=== PATIENT | female | born 1975 | race Caucasian/White ===

== ENCOUNTER 2020-07-25 12:10 | Outpatient (REF) | payer OTHER, SELFPAY | END 2020-07-25 12:11 | disposition home or self-care (01) | LOC: HO.LAB 12:10 | PROVIDERS: Visit Provider Internal Medicine | DX: Z20.828 Contact with and (suspected) exposure to other viral communicable diseases (principal) | CPT/HCPCS: 36415; C9803; U0003 ==

== ENCOUNTER 2022-03-20 22:32 | Emergency (ER) | payer OTHER, SELFPAY ==
--- NOTE | ~2022-03-20 | XR_ITS ---
EXAMINATION: XR CHEST CLINICAL INFORMATION: Cough COMPARISON: None TECHNIQUE: Frontal view of the chest was obtained. FINDINGS: The heart size is at upper limits of normal. No infiltrates, effusions or lung masses are seen. Marked biconvex thoracolumbar scoliosis is present. XR/XR chest 1V IMPRESSION: No acute intrathoracic disease.
[2022-03-20 22:36] VITALS: BP 136/83; PULSE 83; RESP 18; TEMP 37.2; O2SAT 97; BMI 28.9
[2022-03-20 23:03] LABS: COVID-19 Test Negative (Negative)
[2022-03-20 23:12] VITALS: PULSE 90; O2SAT 98
--- NOTE | 2022-03-20 23:37 | ED_ITS ---
HPI - SOB/Dyspnea General Chief Complaint: Dyspnea Stated Complaint: Asthma Time Seen by Provider: 03/20/22 23:37 Source: patient Mode of arrival: ambulatory History of Present Illness HPI Narrative: Patient with History of chronic asthma been feeling increased short of breath for last few days seen by PCP today wanted prescription but patient could not wait at the pharmacy for the prescription to be ready, comes in for increased shortness of breath dry cough with post-tussive vomiting no fever no chills no chest pain Related Data Previous Rx's Medication Instructions Recorded albuterol sulfate 2.5 mg/3 mL 2.5 mg (3 mL) inhalation Q4-6H PRN 03/21/22 (0.083 %) solution for nebulization bronchospasm #180 mL benzonatate 200 mg capsule 200 mg PO TID PRN cough #30 caps 03/21/22 nebulizers #1 ea 03/21/22 Allergies Allergy/AdvReac Type Severity Reaction Status Date / Time oxycodone Allergy Itching Verified 03/20/22 22:36 phenytoin [From Dilantin] Allergy Swelling Verified 03/20/22 22:36 Review of Systems Review of Systems: Yes all other systems are reviewed and are negative [facility] Social History Social History Advance Directives: No Advance Directives Information Provided: No Physical Exam Vital Signs: Vital Signs: Last Vital Signs Temp 98.9 F 03/20/22 22:36 Pulse 96 03/21/22 00:00 Resp 18 03/20/22 22:36 BP 122/64 03/21/22 00:00 Pulse Ox 96 03/21/22 00:00 O2 Del Method 03/21/22 00:00 BMI result Body Mass Index 28.9 Appearance: Alert. Oriented X3. No acute distress. ENT: Pharynx normal. Oral Mucosa moist Neck: Normal inspection. Neck supple. CVS: Normal heart rate and rhythm. Pulses normal. Respiratory: No respiratory distress. Equal air entry bilateral, bilateral wheeze++ Abdomen: Soft and nontender. Bowel sounds are present, no mass palpable, no CVA tenderness Skin: Skin warm and dry. Normal skin color. Normal skin turgor. Extremities: No lower extremity edema. No calf tenderness Neuro: Oriented X 3. MDM - SOB/Dyspnea MDM Narrative Medical decision making narrative: Patient feeling much better after nebulizer treatment prednisone will discharge patient home nebulizer was prescribed Lab Data Attestation: I reviewed the patient's lab results. Labs: Lab Results 03/20/22 Range/Units 22:42 COVID-19 ([facility]ALIN) Negative (Negative) COVID-19 Clin Com See Note Discharge Plan Discharge Clinical Impression: Asthma with exacerbation Patient Disposition: Home, Self-Care Instructions: Asthma (ED), Bronchospasm (ED) Additional Instructions: Continues inhaler/nebulizer treatment Prednisone as prescribed Cough drops as prescribed Follow with PCP Prescriptions: New albuterol sulfate 2.5 mg /3 mL (0.083 %) solution for nebulization 2.5 mg inhalation Q4-6H PRN (Reason: bronchospasm) Qty: 180 0RF (DME) nebulizers Misc See Rx Instructions .Route Qty: 1 0RF Rx Instructions: As directed benzonatate 200 mg capsule 200 mg PO TID PRN (Reason: cough) Qty: 30 0RF
[2022-03-20] MEDS: Albuterol Sulfate (0.083%) 2.5 MG/3 ML VIAL.NEB INHALE (23:55)
[2022-03-20] MEDS: Albuterol/Iprat 2.5/0.5MG 3 ML AMPUL.NEB INHALE (23:55)
[2022-03-20] MEDS: predniSONE 20 MG TABLET 40 MG PO (23:58)
[2022-03-21] VITALS: BP 122/64; PULSE 96; O2SAT 96
[2022-03-21] MEDS: guaiFEN/Codeine SF 200/20/10ML 10 ML LIQUID PO (00:44)
== END 2022-03-21 00:51 | disposition home or self-care (01) ==
PROVIDERS: Emergency Provider Internal Medicine
DX: J45.901 Unspecified asthma with (acute) exacerbation (principal); Z20.822 Contact with and (suspected) exposure to COVID-19
CPT/HCPCS: 71045; 87635; 94640; 99284

== ENCOUNTER 2022-06-21 19:36 | Emergency (ER) | payer OTHER, SELFPAY ==
--- NOTE | 2022-06-21 | ECG_ITS ---
Test Reason : ASTHMA Blood Pressure : / mmHG Vent. Rate : 077 BPM Atrial Rate : 077 BPM P-R Int : 156 ms QRS Dur : 130 ms QT Int : 408 ms P-R-T Axes : 045 -34 023 degrees QTc Int : 461 ms Sinus rhythm with marked sinus arrhythmia Left axis deviation Right bundle branch block Abnormal ECG No previous ECGs available Referred By: Generic ED Physician Electronically Signed By:Byron Gregorio
--- NOTE | ~2022-06-21 | XR_ITS ---
EXAMINATION: XR CHEST CLINICAL INFORMATION: Shortness of breath COMPARISON: 03/20/2022 TECHNIQUE: Frontal view of the chest was obtained. FINDINGS: Lung volumes are symmetric. No focal consolidation is seen. No evidence of pneumothorax, pleural effusion, or pulmonary edema. Prominent cardiac silhouette is similar to prior. Redemonstrated scoliosis. XR/XR chest 1V IMPRESSION: No acute cardiopulmonary findings.
[2022-06-21 21:39] VITALS: BP 126/71; PULSE 104; RESP 20; TEMP 36.6; O2SAT 96; BMI 31.3
[2022-06-21 23:17] VITALS: BP 121/69; PULSE 72; RESP 20; TEMP 36.6; O2SAT 95
--- NOTE | 2022-06-21 23:30 | ED_ITS ---
HPI - Asthma General Chief Complaint: Asthma Stated Complaint: asthma Time Seen by Provider: 06/21/22 23:21 Source: patient Mode of arrival: ambulatory Limitations: no limitations History of Present Illness HPI Narrative: Patient history of asthma got worse after COVIDx2 comes here for increased shortness of breath for last 2 3 days patient also have some running nose for last 4 days no fever , feels lung tight. Patient tried her inhaler without much response no leg swelling or calf tenderness patient was seen for similar complaints in 03/12 Related Data Previous Rx's Medication Instructions Recorded albuterol sulfate 2.5 mg/3 mL 2.5 mg (3 mL) inhalation Q4-6H PRN 03/21/22 (0.083 %) solution for nebulization bronchospasm #180 mL benzonatate 200 mg capsule 200 mg PO TID PRN cough #30 caps 03/21/22 nebulizers #1 ea 03/21/22 nebulizers #1 ea 03/23/22 codeine 10 mg-guaifenesin 100 mg/5 10 ml PO Q6H PRN cough #237 mL 06/22/22 mL oral liquid prednisone 20 mg tablet 40 mg PO DAILY #10 tabs 06/22/22 Allergies Allergy/AdvReac Type Severity Reaction Status Date / Time oxycodone Allergy Itching Verified 06/21/22 21:41 phenytoin [From Dilantin] Allergy Swelling Verified 06/21/22 21:41 Review of Systems Review of Systems: Yes all other systems are reviewed and are negative [facility] Social History Social History Advance Directives: No Advance Directives Information Provided: Yes Physical Exam Vital Signs: Vital Signs: Last Vital Signs Temp 97.9 F 06/21/22 23:17 Pulse 80 06/21/22 23:43 Resp 16 06/21/22 23:43 BP 121/69 06/21/22 23:17 Pulse Ox 95 06/21/22 23:17 O2 Del Method 06/21/22 23:17 BMI result Body Mass Index 31.3 Appearance: Alert. Oriented X3. No acute distress. ENT: Pharynx normal. Oral Mucosa moist Neck: Normal inspection. Neck supple. CVS: Normal heart rate and rhythm. Pulses normal. Respiratory: No respiratory distress. Equal air entry bilateral, prolonged expiration bilaterally occasional wheezing Abdomen: Soft and nontender. Bowel sounds are present, no mass palpable, no CVA tenderness Skin: Skin warm and dry. Normal skin color. Normal skin turgor. Extremities: No lower extremity edema. No calf tenderness Neuro: Oriented X 3. No motor deficit. Medications Administered Discontinued Medications Generic Name Dose Route Start Last Admin Trade Name Freq PRN Reason Stop Dose Admin Albuterol Sulfate 2.5 mg/ 0 mg 06/21/22 23:31 06/21/22 23:39 Albuterol/Ipratropium 3 ml INHALE 06/21/22 23:32 1 each ONCE ONE Administration Dexamethasone 10 mg 06/21/22 23:31 06/21/22 23:52 Dexamethasone 2 Mg Tablet PO 06/21/22 23:32 10 mg ONCE ONE Administration Guaifenesin/Codeine Phosphate 10 ml 06/21/22 23:32 06/21/22 23:52 Guaifen/Codeine Sf 200/20/10ml 10 Ml Liquid PO 06/21/22 23:33 10 ml ONCE ONE Administration MDM - Asthma MDM Narrative Medical decision making narrative: Patient's chest x-ray negative COVID/flu/RSV negative discharge patient home on albuterol inhaler and prednisone Differential Diagnosis Differential diagnosis: Likely Acute asthmatic bronchitis Lab Data Attestation: I reviewed the patient's lab results. Labs: Lab Results 06/21/22 Range/Units 23:45 Influenza Type A (PCR) NEGATIVE (Negative) Influenza Type B (PCR) NEGATIVE (Negative) RSV RNA Qual (PCR) NEGATIVE (Negative) SARS-CoV-2 RNA (RT-PCR) NEGATIVE (Negative) Discharge Plan Discharge Clinical Impression: Asthma with acute exacerbation Patient Disposition: Home, Self-Care Instructions: Asthma (ED) Additional Instructions: Use albuterol inhaler as prescribed Prednisone and cough syrup Follow with PCP as needed Prescriptions: New prednisone 20 mg tablet 40 mg PO DAILY Qty: 10 0RF codeine-guaifenesin 10-100 mg/5 mL liquid 10 ml PO Q6H PRN (Reason: cough) Qty: 237 0RF No Action albuterol sulfate 2.5 mg /3 mL (0.083 %) solution for nebulization 2.5 mg inhalation Q4-6H PRN (Reason: bronchospasm) Qty: 180 0RF (DME) nebulizers Misc See Rx Instructions .Route Qty: 1 0RF Rx Instructions: As directed benzonatate 200 mg capsule 200 mg PO TID PRN (Reason: cough) Qty: 30 0RF (DME) nebulizers Misc See Rx Instructions .Route Qty: 1 0RF Rx Instructions: As directed
[2022-06-21] MEDS: Albuterol Sulfate 2.5 MG, Albuterol/Iprat 2.5/0.5MG 3 ML 3 ML INHALE (23:39)
[2022-06-21 23:43] VITALS: PULSE 80; RESP 16; O2SAT 97
[2022-06-21] MEDS: dexAMETHasone 2 MG TABLET 10 MG PO (23:52)
[2022-06-21] MEDS: guaiFEN/Codeine SF 200/20/10ML 10 ML LIQUID PO (23:52)
[2022-06-22 00:27] LABS: Influenza A PCR NEGATIVE (Negative); Influenza B PCR NEGATIVE (Negative); Resp Syncy Virus RNA Qual PCR NEGATIVE (Negative); SARS COV2 PCR INHOUSE NEGATIVE (Negative)
--- NOTE | 2022-06-22 00:44 | PC.NURSE ---
Pt sleeping at this time respirations regular.
[2022-06-22 01:09] VITALS: BP 115/62; PULSE 83; RESP 16; TEMP 36.6; O2SAT 94
== END 2022-06-22 01:13 | disposition home or self-care (01) ==
PROVIDERS: Emergency Provider Internal Medicine
DX: J45.901 Unspecified asthma with (acute) exacerbation (principal); Z20.822 Contact with and (suspected) exposure to COVID-19
CPT/HCPCS: 0241U; 71045; 93005; 94640; 99284; J8540

== ENCOUNTER 2023-08-14 17:36 | Emergency (ER) | payer SELFPAY ==
--- NOTE | ~2023-08-14 | XR_ITS ---
EXAMINATION: XR CHEST CLINICAL INFORMATION: Chest pain COMPARISON: Chest 06/21/2022 TECHNIQUE: Frontal view of the chest was obtained. FINDINGS: The lungs are well-expanded and clear of acute process. Heart size and pulmonary vascularity is normal. There is moderate dextroscoliosis of dorsal spine. No aggressive lytic or sclerotic process seen. XR/XR chest 1V IMPRESSION: Unremarkable chest examination.
--- NOTE | 2023-08-14 17:38 | ECG_ITS ---
Test Reason : CP Blood Pressure : / mmHG Vent. Rate : 085 BPM Atrial Rate : 085 BPM P-R Int : 156 ms QRS Dur : 120 ms QT Int : 380 ms P-R-T Axes : 039 -34 016 degrees QTc Int : 452 ms Normal sinus rhythm Left axis deviation Right bundle branch block Anterior infarct , age undetermined Abnormal ECG When compared with ECG of 21-JUN-2022 21:57, No significant change was found Referred By: Josefina Baig Electronically Signed By:Byron Gregorio
--- NOTE | 2023-08-14 17:42 | ED.CHESTPAIN ---
HPI - Chest Pain General Chief Complaint: Chest Pain Stated Complaint: fever nausea chest pain Time Seen by Provider: 08/14/23 22:03 Source: patient and family Mode of arrival: ambulatory Limitations: no limitations History of Present Illness HPI narrative: 48-year-old female asthma, scoliosis, who presents emergency department for evaluation of nausea, vomiting, abdominal pain, left-sided chest pain and left arm pain. Patient states that 3 days prior she developed left-sided chest pain which is a sharp pain worse with movement and breathing, the pain radiates down her left arm. Patient states the pain is been constant since onset. Patient states the last 24 hours she is also developed fever, chills, nausea with vomiting, myalgias, arthralgias and weakness. She denied rhinorrhea, cough or sore throat. She denied diarrhea. Patient states she is received 3 COVID vaccinations but has not received the last 2 COVID update vaccinations Patient does have history of asthma, she has not had to use her albuterol inhaler frequently. She states she has an Advair inhaler that she uses rarely. Related Data Previous Rx's Medication Instructions Recorded albuterol sulfate 2.5 mg/3 mL 2.5 mg (3 mL) inhalation Q4-6H PRN 03/21/22 (0.083 %) solution for nebulization bronchospasm #180 mL benzonatate 200 mg capsule 200 mg PO TID PRN cough #30 caps 03/21/22 nebulizers #1 ea 03/21/22 nebulizers #1 ea 03/23/22 codeine 10 mg-guaifenesin 100 mg/5 10 ml PO Q6H PRN cough #237 mL 06/22/22 mL oral liquid prednisone 20 mg tablet 40 mg (2 x 20 mg) PO DAILY #10 tabs 06/22/22 nirmatrelvir 300 mg (150 mg See Rx Instructions PO .COMPLEX 08/14/23 x2)-ritonavir 100 mg tablet,dose #30 ea pack (Paxlovid) ondansetron 4 mg disintegrating 4 mg PO Q6-8H PRN nausea and 08/14/23 tablet vomiting #14 tabs Allergies Allergy/AdvReac Type Severity Reaction Status Date / Time oxycodone Allergy Itching Verified 08/14/23 17:43 phenytoin [From Dilantin] Allergy Swelling Verified 08/14/23 17:43 Review of Systems Review of Systems: Yes all other systems are reviewed and are negative [facility] Past Medical History [facility] Narrative: Past medical history: Asthma, scoliosis social history: She denies tobacco use. She occasionally drinks alcohol. She does smoke marijuana occasionally. Physical Exam Vital Signs: Vital Signs: Last Vital Signs Temp 98.3 F 08/14/23 17:43 Pulse 80 08/14/23 21:15 Resp 16 08/14/23 17:43 BP 124/89 08/14/23 21:15 Pulse Ox 98 08/14/23 21:15 O2 Del Method Room Air 08/14/23 21:15 BMI result Body Mass Index 31.4 Vital signs were normal Exam General: Awake, alert in no distress Head: Normocephalic, atraumatic EENT: PERRL, Lids normal, sclera normal, conjunctiva normal, nose normal , ears normal, throat without erythema or exudates Neck: Supple, no adenopathy, no trachea midline or C-spine tenderness Lung: breath sounds symmetric, no wheezing, rales or rhonchi Chest: symmetric movement, nontender Heart: regular rate and rhythm, normal S1, S2 no murmurs or rubs Abdomen: soft, non-tender, nondistended, normal bowel sounds Back: no vertebral tenderness, no CVAT Extremities: no deformities, moves all extremities symmetrically Neuro: Awake, alert, oriented, normal speech, cranial nerves intact, moves all extremities symmetrically Psych: Pleasant, cooperative Course Course Course Narrative: RME: 48 year-old F w/ PMHx asthma presenting to the ED c/o chest pain w/LUE pain x few days & fever, nausea, vomiting & upper abd pain x today. denies cough. abdomen soft w/mild lower ttp, no rebound or guarding EKG, labs, CXR ordered Full HPI, ROS and PE to be performed by primary ED provider. Medical Decision Making Medical Decision Making MDM Narrative: 48-year-old female with a history of asthma, scoliosis who presents emergency department for evaluation of 3 days of left-sided chest pain and 1 day of viral-like illness with symptoms including nausea, vomiting, abdominal pain, myalgias, arthralgias and fatigue. Vital signs revealed elevated blood pressure 149/77 otherwise unremarkable. Physical examination was unremarkable as well. Following evaluation was ordered: CBC, BNP, liver panel, lipase, magnesium, urinalysis, troponin, urine test, COVID-19, influenza, EKG, chest x-ray Patient was treated with the following: Zofran ODT 4 mg orally 22:33 My interpretation patient's laboratory evaluation as follows: CBC was normal. BMP and liver panel was normal. Lipase was normal. Troponin was below detectable limits Urine test and urinalysis were unremarkable. Influenza was negative. COVID-19 was positive. The patient's symptoms are consistent with a COVID infection. Patient's chest x-ray revealed severe scoliosis but no acute cardiopulmonary disease. Twelve EKG was unremarkable. Differential Diagnosis Differential Diagnoses: The differential diagnosis associated with the presentation includes Lab Data MDM Lab Attestation statement: I reviewed the patient's lab results. 08/14/23 18:41 08/14/23 18:41 Labs: Lab Results 08/14/23 08/14/23 Range/Units 18:41 21:42 WBC 5.9 (4.8-10.8) X10*3/uL RBC 4.60 (4.20-5.50) X10*6/uL Hgb 13.8 (12.0-16.0) g/dl Hct 41.7 (37.0-47.0) % MCV 90.7 (80.0-98.0) fL MCH 30.0 (27.0-33.0) pg MCHC 33.1 (31.0-35.0) g/dl RDW 12.0 (11.0-16.0) % Plt Count 304 (160-400) X10*3/uL MPV 10.6 (9.4-12.3) fL Immature Gran % (Auto) 0.3 (0.0-0.4) % Neut % (Auto) 64.4 (45-73) % Lymph % (Auto) 18.1 L (20-40) % [place] % (Auto) 15.0 H (2-11) % Eos % (Auto) 1.5 (0-4) % Baso % (Auto) 0.7 (0-2) % Lymph # (Auto) 1.1 L (1.2-4.9) X10*3/uL [place] # (Auto) 0.9 (0.1-1.2) X10*3/uL Eos # (Auto) 0.1 (0.0-0.4) X10*3/uL Baso # (Auto) 0.0 (0.0-0.2) X10*3/uL Abs Immat Gran (auto) 0.02 (0.00-0.03) X10*3/uL Absolute Neuts (auto) 3.8 (2.0-8.3) x10*3/uL Absolute Nucleated RBC 0.000 (0.0-0.012) X10*3/uL Nucleated RBC % (auto) 0.0 (0.0-0.2) /100WBC Sodium 138 (135-145) mmol/L Potassium 3.9 (3.3-5.1) mmol/L Chloride 105 (96-108) mmol/L Carbon Dioxide 26 (22-29) mmol/L Anion Gap 11 L (12-20) BUN 9 (9-16) mg/dL Creatinine 0.70 (0.5-1.4) mg/dL Estim Creat Clear Calc 121.5 Estimated GFR > 60 Random Glucose 100 (60-115) mg/dL Calcium 9.5 (8.4-10.2) mg/dL Magnesium 1.9 (1.6-2.6) mg/dL Total Bilirubin 0.4 (0.0-1.0) mg/dL Direct Bilirubin 0.2 (0.0-0.5) mg/dL AST 16 (5-31) U/L ALT 21 (0-31) U/L Alkaline Phosphatase 109 (39-117) U/L Troponin I High Sens < 2.7 (<3.5-17.0) ng/L Total Protein 8.0 (6.5-8.0) g/dL Albumin 4.1 (3.5-5.0) g/dL Lipase 27 (8-78) U/L Urine Color Yellow Urine Appearance Cloudy Urine pH 6.5 (5.0-9.0) Ur Specific [place] 1.020 (1.005-1.025) Urine Protein Negative (Neg-Trace) mg/dL Urine Glucose (UA) Negative (Negative) mg/dL Urine Ketones Negative (Negative) mg/dL Urine Blood Trace H (Negative) Urine Nitrite Negative (Negative) Ur Leukocyte Esterase Trace H (Negative) Urine RBC 6-10 H (0-2) /HPF Urine WBC 0-5 (0-5) /HPF Ur Squamous Epith Cells 3-5 (0-2) /HPF Urine Bacteria 1+ (None Seen) Hyaline Casts 0-2 (0-2) /LPF Urine Test NEGATIVE (NEGATIVE) COVID-19 (STALIN) Positive A (Negative) COVID-19 Clin Com See Note Influenza Type A (EM) Negative (Negative) Influenza Type B (EM) Negative (Negative) Influenza A & B Note See Note Independent Interpretation I performed an independent interpretation of an: EKG and Plain X-Ray Interpretation: My independent interpretation patient's 12 EKG done at 17:49 hours is as follows: Normal sinus rhythm rate of 85, normal MD interval, prolonged QRS duration of 120 milliseconds, normal QTC interval of 452 millisecond, no ST segment elevation, no ST segment depression, no PACs, no PVCs, right bundle-branch block. Compared to EKG dated 06/21/2022 the right bundle-branch block is old. Radiology Impression Discussion of test interpretation with radiology: I have reviewed the radiologist's reading. Radiologist Impression: XR chest 1V IMPRESSION: Unremarkable chest examination. Dictated By: Messi Talbert MD Discharge Plan Discharge Clinical Impression: COVID-19 virus infection Vomiting Qualifiers: Vomiting type: unspecified Nausea presence: with nausea Qualified Code(s): R11.2 - Nausea with vomiting, unspecified Patient Disposition: Home, Self-Care Instructions: COVID-19 (Coronavirus Disease 2019) (ED) Additional Instructions: Your blood work was normal pain Your chest x-ray was normal with no evidence for pneumonia. Your influenza test was negative Your COVID-19 infection was positive. Your symptoms are consistent with a COVID-19 viral infection. Since you have asthma your increased risk of getting sicker with a COVID-19 infection therefore I am prescribing Paxlovid 3 pills twice a day for 5 days. This medication comes in a dispense package, take it as directed until you complete all the pills Do not use your Advair inhaler while you take Paxlovid You can use your albuterol inhaler, 2 puffs every 4 hours as needed while your taking Paxlovid. Take Zofran ODT 4 mg pills, 1 pill dissolved in your mouth every 8 hours as needed for nausea and vomiting. Follow-up with your doctor in 2 days. Please return to the emergency department if your symptoms get worse or if you develop any symptoms that are concerning to you. Please see the work note Prescriptions: New Paxlovid 300 mg (150 mg x 2)-100 mg tablets,dose pack See Rx Instructions PO .COMPLEX Qty: 30 0RF Rx Instructions: take TWO 150 mg tablets of nirmatrelvir with ONE 100 mg tablet of ritonavir twice daily for 5 days ondansetron 4 mg tablet,disintegrating 4 mg PO Q6-8H PRN (Reason: nausea and vomiting) Qty: 14 0RF No Action albuterol sulfate 2.5 mg /3 mL (0.083 %) solution for nebulization 2.5 mg inhalation Q4-6H PRN (Reason: bronchospasm) Qty: 180 0RF (DME) nebulizers Misc See Rx Instructions .Route Qty: 1 0RF Rx Instructions: As directed benzonatate 200 mg capsule 200 mg PO TID PRN (Reason: cough) Qty: 30 0RF (DME) nebulizers Misc See Rx Instructions .Route Qty: 1 0RF Rx Instructions: As directed prednisone 20 mg tablet 40 mg PO DAILY Qty: 10 0RF codeine-guaifenesin 10-100 mg/5 mL liquid 10 ml PO Q6H PRN (Reason: cough) Qty: 237 0RF Stand Alone Forms: Work/School Release
[2023-08-14 17:43] VITALS: BP 149/77; PULSE 90; RESP 16; TEMP 36.8; O2SAT 95; BMI 31.4
[2023-08-14 18:50] LABS: MANUAL DIFF FLAG NO
[2023-08-14 19:09] LABS: COVID-19 Test Positive (Negative); IDNOW Serial# 08D9AD1C; IDNOW Serial# 152EDE1D; Influenza A Negative (Negative); Influenza B2 Negative (Negative)
[2023-08-14 19:12] LABS: Alanine Aminotransferase 21 U/L (0-31); Albumin Level 4.1 g/dL (3.5-5.0); Alkaline Phosphatase 109 U/L (39-117); Anion Gap 11 (12-20); Aspartate Amino Transferase 16 U/L (5-31); Bilirubin Direct 0.2 mg/dL (0.0-0.5); Bilirubin Total 0.4 mg/dL (0.0-1.0); Blood Urea Nitrogen 9 mg/dL (9-16); Calcium 9.5 mg/dL (8.4-10.2); Carbon Dioxide 26 mmol/L (22-29); Chloride 105 mmol/L (96-108); Creatinine Clr Calc Pharmacy 121.5; Estimated Glomerular Filt Rate > 60; Glucose Random 100 mg/dL (60-115); Lipase 27 U/L (8-78); Magnesium 1.9 mg/dL (1.6-2.6); Potassium 3.9 mmol/L (3.3-5.1); Sodium 138 mmol/L (135-145)
[2023-08-14 19:13] LABS: Basophils Percent Auto 0.7 % (0-2); Eosinophils Absolute Auto 0.1 X10*3/uL (0.0-0.4); Eosinophils Percent Auto 1.5 % (0-4); Hematocrit 41.7 % (37.0-47.0); Hemoglobin 13.8 g/dl (12.0-16.0); Imm Gran Abs Auto 0.02 X10*3/uL (0.00-0.03); Imm Gran Pct Auto 0.3 % (0.0-0.4); Lymphocytes Absolute Auto 1.1 X10*3/uL (1.2-4.9); Lymphocytes Percent Auto 18.1 % (20-40); Mean Corpuscular HGB Conc 33.1 g/dl (31.0-35.0); Mean Corpuscular Volume 90.7 fL (80.0-98.0); Mean Platelet Volume 10.6 fL (9.4-12.3); Monocytes Absolute Auto 0.9 X10*3/uL (0.1-1.2); Neutrophils Absolute Auto 3.8 x10*3/uL (2.0-8.3); Neutrophils Percent Auto 64.4 % (45-73); Platelet Count 304 X10*3/uL (160-400); White Blood Count 5.9 X10*3/uL (4.8-10.8)
[2023-08-14 19:21] LABS: Troponin-I High Sensitivity < 2.7 ng/L (<3.5-17.0)
[2023-08-14 21:15] VITALS: BP 124/89; PULSE 80; O2SAT 98
[2023-08-14 21:51] LABS: Appearance Urine Cloudy; Color Urine Yellow; Glucose Urine UA Negative (Negative); Leukocyte Esterase Urine Trace (Negative); Nitrite Urine Negative (Negative); PH 6.5 (5.0-9.0); UMIC TRIGGER UACC YES; Urine Blood Trace (Negative); Urine Ketones Negative (Negative); Urine Protein Negative (Neg-Trace)
[2023-08-14 21:54] LABS: UPreg QC Valid YES; Urine Pregnancy NEGATIVE (NEGATIVE)
[2023-08-14 21:57] LABS: Bacteria Urine 1+ (None Seen); Hyaline Casts Urine 0-2 /LPF (0-2); WBC Urine 0-5 /HPF (0-5)
[2023-08-14] MEDS: Ondansetron ODT 4 MG TAB.RAPDIS TRANSLINGU (22:34)
== END 2023-08-14 22:36 | disposition home or self-care (01) ==
LOC: HO.ED 22:32
PROVIDERS: Physician Assistant; Emergency Provider Emergency Medicine Emergency Medical Services
DX: U07.1 COVID-19 (principal); R07.89 Other chest pain; R11.2 Nausea with vomiting, unspecified; R50.9 Fever, unspecified; M79.602 Pain in left arm; Z79.899 Other long term (current) drug therapy
CPT/HCPCS: 36415; 71045; 80048; 80076; 81001; 81025; 83690; 83735; 84484; 85025; 87502; 87635; 93005; 99283

== ENCOUNTER → 2023-08-14 17:38 | Outpatient (BNV) | payer SELFPAY | PROVIDERS: Emergency Provider Emergency Medicine Emergency Medical Services; Visit Provider Internal Medicine Cardiovascular Disease | DX: R94.31 Abnormal electrocardiogram [ECG] [EKG] (principal); R07.9 Chest pain, unspecified | CPT/HCPCS: 93010 ==

== ENCOUNTER 2024-01-09 19:00 | Emergency (ER) | payer OTHER, SELFPAY ==
--- NOTE | ~2024-01-09 | XR_ITS ---
EXAMINATION: XR CHEST CLINICAL INFORMATION: Chest pain. COMPARISON: Chest radiograph 08/14/2023. TECHNIQUE: Frontal view of the chest was obtained. FINDINGS: Stable enlargement of the cardiomediastinal silhouette. Unchanged central vascular prominence. No new focal airspace densities. No pleural effusion or pneumothorax. Redemonstration of pronounced thoracolumbar scoliosis. No acute osseous findings. Visualized upper abdomen is within normal limits. XR/XR chest 1V IMPRESSION: 1. No acute cardiopulmonary findings. 2. Stable enlargement of the cardiomediastinal silhouette. 3. Redemonstration of pronounced thoracolumbar scoliosis.
--- NOTE | 2024-01-09 19:01 | ECG_ITS ---
Test Reason : CP Blood Pressure : / mmHG Vent. Rate : 097 BPM Atrial Rate : 097 BPM P-R Int : 144 ms QRS Dur : 120 ms QT Int : 372 ms P-R-T Axes : 053 -45 029 degrees QTc Int : 472 ms Normal sinus rhythm Right bundle branch block Left anterior fascicular block Bifascicular block Cannot rule out Anterior infarct (cited on or before 14-AUG-2023) Abnormal ECG When compared with ECG of 14-AUG-2023 17:49, No significant change was found Referred By: Generic ED Physician Electronically Signed By:Byron Gregorio
[2024-01-09 19:02] VITALS: BP 152/77; PULSE 91; RESP 18; TEMP 36.6; O2SAT 98; BMI 31.3
--- NOTE | 2024-01-09 19:03 | ED_ITS ---
HPI - Chest Pain General Chief Complaint: Chest Pain Stated Complaint: chest pain vomiting,dizziness Time Seen by Provider: 01/09/24 20:11 Source: patient Mode of arrival: ambulatory Limitations: no limitations History of Present Illness ED Provider: josé RAMOS narrative: Patient has no known coronary risk factors comes here for 2 -3 days of chest pain which is sharp in character diffuse also complaining of nonspecific no nausea no vomiting also has abdominal cramps no diarrhea Related Data Previous Rx's ?Medication ?Instructions ?Recorded albuterol sulfate 2.5 mg/3 mL 2.5 mg (3 mL) inhalation Q4-6H PRN 03/21/22 (0.083 %) solution for nebulization bronchospasm #180 mL benzonatate 200 mg capsule 200 mg PO TID PRN cough #30 caps 03/21/22 nebulizers #1 ea 03/21/22 nebulizers #1 ea 03/23/22 codeine 10 mg-guaifenesin 100 mg/5 10 ml PO Q6H PRN cough #237 mL 06/22/22 mL oral liquid prednisone 20 mg tablet 40 mg (2 x 20 mg) PO DAILY #10 tabs 06/22/22 nirmatrelvir 300 mg (150 mg See Rx Instructions PO .COMPLEX 08/14/23 x2)-ritonavir 100 mg tablet,dose #30 ea pack (Paxlovid) ondansetron 4 mg disintegrating 4 mg PO Q6-8H PRN nausea and 08/14/23 tablet vomiting #14 tabs Allergies Allergy/AdvReac Type Severity Reaction Status Date / Time oxycodone Allergy Itching Verified 01/09/24 19:04 phenytoin [From Dilantin] Allergy Swelling Verified 01/09/24 19:04 Review of Systems 2 Review of Systems: Yes all other systems are reviewed and are negative [facility] Social History Social History Alcohol intake: current Smoked in Last 30 Days: No Use of substances other than those prescribed or required for medical reasons: No Advance Directives: No Advance Directives Information Provided: No Do you have a plan to hurt others: No Plan Physical Exam 2 Vital Signs: Vital Signs: Last Vital Signs Temp 98.0 F 01/09/24 21:04 Pulse 83 01/09/24 21:04 Resp 16 01/09/24 21:04 BP 130/66 01/09/24 21:04 Pulse Ox 96 01/09/24 21:04 O2 Del Method Room Air 01/09/24 21:04 BMI result Body Mass Index 31.3 Appearance: Alert. Oriented X3. No acute distress. Eyes: No pallor or icterus ENT: Pharynx normal. Oral Mucosa moist Neck: Normal inspection. Neck supple. CVS: Normal heart rate and rhythm. Pulses normal. Respiratory: No respiratory distress. Equal air entry bilateral, no wheezing/rales/rhonchi Abdomen: Soft mild left upper quadrant tenderness no rebound tenderness/ guarding Bowel sounds are present, Skin: Skin warm and dry. Normal skin color. Normal skin turgor. Extremities: No lower extremity edema. No calf tenderness Neuro: Oriented X 3. Course Course Course Narrative: This is a Rapid Medical Exam performed in triage by Josefina Baig PA-C. Full HPI, ROS and PE to be performed by primary ED provider. 48 year-old F w/ PMHx presenting to the ED c/o nonradiating midsternal chest pain w/assoc lighteadedness x2 hrs. admits to N/V. denies SOB PE: Nontoxic appearing, ambulating w/steady gait, talking in complete sentences Plan: EKG, lab, CXR ordered Medications Administered Discontinued Medications Generic Name Dose Route Start Last Admin Trade Name Freq PRN Reason Stop Dose Admin Ondansetron HCl 4 mg 01/09/24 20:22 01/09/24 20:43 Ondansetron Odt 4 Mg Tab.Rapdis TRANSLINGU 01/09/24 20:23 4 mg ONCE ONE Administration Medical Decision Making Medical Decision Making [facility] Narrative: Patient has atypical chest 2 days of duration sensitive troponin negative EKG without any ischemic changes also has multiple other complaints including dizziness feeling weak and upper abdominal pain likely heat exhaustion patient advised to follow with her PCP Differential Diagnosis Differential Diagnoses: The differential diagnosis associated with the presentation includes ACS/atypical chestpain/anxiety/dizziness Admission/Observation Consideration of admission/observation: Escalation of care including admission/observation considered Lab Data [facility] Lab Attestation statement: I reviewed the patient's lab results. 01/09/24 19:15 01/09/24 19:15 Labs: Lab Results 01/09/24 Range/Units 19:15 WBC 9.3 (4.8-10.8) X10*3/uL RBC 4.74 (4.20-5.50) X10*6/uL Hgb 14.1 (12.0-16.0) g/dl Hct 42.9 (37.0-47.0) % MCV 90.5 (80.0-98.0) fL MCH 29.7 (27.0-33.0) pg MCHC 32.9 (31.0-35.0) g/dl RDW 11.9 (11.0-16.0) % Plt Count 312 (160-400) X10*3/uL MPV 10.4 (9.4-12.3) fL Immature Gran % (Auto) 0.3 (0.0-0.4) % Neut % (Auto) 74.3 H (45-73) % Lymph % (Auto) 17.7 L (20-40) % [place] % (Auto) 6.2 (2-11) % Eos % (Auto) 1.2 (0-4) % Baso % (Auto) 0.3 (0-2) % Lymph # (Auto) 1.6 (1.2-4.9) X10*3/uL [place] # (Auto) 0.6 (0.1-1.2) X10*3/uL Eos # (Auto) 0.1 (0.0-0.4) X10*3/uL Baso # (Auto) 0.0 (0.0-0.2) X10*3/uL Abs Immat Gran (auto) 0.03 (0.00-0.03) X10*3/uL Absolute Neuts (auto) 6.9 (2.0-8.3) x10*3/uL Absolute Nucleated RBC 0.000 (0.0-0.012) X10*3/uL Nucleated RBC % (auto) 0.0 (0.0-0.2) /100WBC Sodium 141 (135-145) mmol/L Potassium 4.0 (3.3-5.1) mmol/L Chloride 106 (96-108) mmol/L Carbon Dioxide 27 (22-29) mmol/L Anion Gap 12 (12-20) BUN 19 H (9-16) mg/dL Creatinine 0.80 (0.5-1.4) mg/dL Estim Creat Clear Calc 106.1 Estimated GFR > 60 Random Glucose 117 H (60-115) mg/dL Calcium 9.9 (8.4-10.2) mg/dL Total Bilirubin 0.6 (0.0-1.0) mg/dL Direct Bilirubin 0.2 (0.0-0.5) mg/dL AST 16 (5-31) U/L ALT 20 (0-31) U/L Alkaline Phosphatase 109 (39-117) U/L Troponin I High Sens < 2.7 (<3.5-17.0) ng/L Total Protein 8.2 H (6.5-8.0) g/dL Albumin 4.3 (3.5-5.0) g/dL Independent Interpretation I performed an independent interpretation of an: EKG Interpretation: Normal sinus rhythm heart rate 97 beats per minute right bundle-branch block no acute ST T wave changes no acute ischemia no change from the previous EKG Discharge Plan Discharge Clinical Impression: Atypical chest pain Patient Disposition: Home, Self-Care Instructions: Noncardiac Chest Pain (ED) Additional Instructions: Drink plenty of fluids Your chest pain is unlikely from the heart Follow with PCP if any concerns Prescriptions: No Action albuterol sulfate 2.5 mg /3 mL (0.083 %) solution for nebulization 2.5 mg inhalation Q4-6H PRN (Reason: bronchospasm) Qty: 180 0RF (DME) nebulizers Mis See Rx Instructions .Route Qty: 1 0RF Rx Instructions: As directed benzonatate 200 mg capsule 200 mg PO TID PRN (Reason: cough) Qty: 30 0RF (DME) nebulizers Misc See Rx Instructions .Route Qty: 1 0RF Rx Instructions: As directed prednisone 20 mg tablet 40 mg PO DAILY Qty: 10 0RF codeine-guaifenesin 10-100 mg/5 mL liquid 10 ml PO Q6H PRN (Reason: cough) Qty: 237 0RF Paxlovid 300 mg (150 mg x 2)-100 mg tablets,dose pack See Rx Instructions PO .COMPLEX Qty: 30 0RF Rx Instructions: take TWO 150 mg tablets of nirmatrelvir with ONE 100 mg tablet of ritonavir twice daily for 5 days ondansetron 4 mg tablet,disintegrating 4 mg PO Q6-8H PRN (Reason: nausea and vomiting) Qty: 14 0RF Stand Alone Forms: Work/School Release Interventions: ED Discharge Assessment Last Done: 01/09/24 21:04 Discharge Date/Time: 01/09/24 21:04 Print Language: Greek
[2024-01-09 19:18] LABS: MANUAL DIFF FLAG NO
[2024-01-09 19:23] LABS: Basophils Percent Auto 0.3 % (0-2); Eosinophils Absolute Auto 0.1 X10*3/uL (0.0-0.4); Eosinophils Percent Auto 1.2 % (0-4); Hematocrit 42.9 % (37.0-47.0); Hemoglobin 14.1 g/dl (12.0-16.0); Imm Gran Abs Auto 0.03 X10*3/uL (0.00-0.03); Imm Gran Pct Auto 0.3 % (0.0-0.4); Lymphocytes Absolute Auto 1.6 X10*3/uL (1.2-4.9); Lymphocytes Percent Auto 17.7 % (20-40); Mean Corpuscular HGB Conc 32.9 g/dl (31.0-35.0); Mean Corpuscular Hemoglobin 29.7 pg (27.0-33.0); Mean Corpuscular Volume 90.5 fL (80.0-98.0); Mean Platelet Volume 10.4 fL (9.4-12.3); Monocytes Absolute Auto 0.6 X10*3/uL (0.1-1.2); Monocytes Percent Auto 6.2 % (2-11); Neutrophils Absolute Auto 6.9 x10*3/uL (2.0-8.3); Neutrophils Percent Auto 74.3 % (45-73); Platelet Count 312 X10*3/uL (160-400); Red Blood Count 4.74 X10*6/uL (4.20-5.50); Red Cell Distribution Width 11.9 % (11.0-16.0); White Blood Count 9.3 X10*3/uL (4.8-10.8)
[2024-01-09 19:40] LABS: Alanine Aminotransferase 20 U/L (0-31); Albumin Level 4.3 g/dL (3.5-5.0); Alkaline Phosphatase 109 U/L (39-117); Anion Gap 12 (12-20); Aspartate Amino Transferase 16 U/L (5-31); Bilirubin Direct 0.2 mg/dL (0.0-0.5); Bilirubin Total 0.6 mg/dL (0.0-1.0); Blood Urea Nitrogen 19 mg/dL (9-16); Calcium 9.9 mg/dL (8.4-10.2); Carbon Dioxide 27 mmol/L (22-29); Chloride 106 mmol/L (96-108); Creatinine Clr Calc Pharmacy 106.1; Estimated Glomerular Filt Rate > 60; Glucose Random 117 mg/dL (60-115); Sodium 141 mmol/L (135-145); Total Protein 8.2 g/dL (6.5-8.0)
[2024-01-09 19:51] LABS: Troponin-I High Sensitivity < 2.7 ng/L (<3.5-17.0)
[2024-01-09 20:16] VITALS: BP 130/66; PULSE 83; RESP 16; TEMP 36.7; O2SAT 96
[2024-01-09 20:41] VITALS: PULSE 93
[2024-01-09] MEDS: Ondansetron ODT 4 MG TAB.RAPDIS TRANSLINGU (20:43)
[2024-01-09 21:04] VITALS: BP 130/66; PULSE 83; RESP 16; TEMP 36.7; O2SAT 96
== END 2024-01-09 21:04 | disposition home or self-care (01) ==
PROVIDERS: Emergency Provider Internal Medicine; PCP Internal Medicine
DX: R07.89 Other chest pain (principal); R10.12 Left upper quadrant pain; Z79.899 Other long term (current) drug therapy
CPT/HCPCS: 36415; 71045; 80048; 80076; 84484; 85025; 93005; 99284

== ENCOUNTER → 2024-01-09 19:01 | Outpatient (BNV) | payer OTHER, SELFPAY | PROVIDERS: Emergency Provider Internal Medicine; PCP Internal Medicine; Visit Provider Internal Medicine Cardiovascular Disease | DX: R07.9 Chest pain, unspecified (principal); I45.2 Bifascicular block; R94.31 Abnormal electrocardiogram [ECG] [EKG] | CPT/HCPCS: 93010 ==